=== PATIENT | female | born 1955 | race Caucasian/White ===

== ENCOUNTER → 2016-11-21 | Outpatient (CLI) | payer OTHER | LOC: FIMAGING 10-15 10:20 | PROVIDERS: ATTEND Family Medicine | DX: Z04.8 Encounter for examination and observation for other specified reasons (principal); N28.1 Cyst of kidney, acquired; R31.9 Hematuria, unspecified ==

== ENCOUNTER → 2018-07-16 | Outpatient (CLI) | payer OTHER | LOC: FIMAGING 12:51 | PROVIDERS: ATTEND Family Medicine | DX: Z12.31 Encounter for screening mammogram for malignant neoplasm of breast (principal) ==